=== PATIENT | male | born 1995 | race Caucasian/White ===

== ENCOUNTER 2024-05-18 04:02 | Emergency (ER) | payer SELFPAY ==
[~2024-05-18] VITALS: Ht 175.3 cm; Wt 170.0 kg
[2024-05-18 05:34] VITALS: BP 119/67; PULSE 70; RESP 14; TEMP 98.3; O2SAT 97
== END 2024-05-18 06:51 | disposition left against medical advice (07) ==
LOC: EMS 04:03
DX: S50.02XA Contusion of left elbow, initial encounter (principal); V00.131A Fall from skateboard, initial encounter; Y93.51 Activity, roller skating (inline) and skateboarding; Y92.89 Other specified places as the place of occurrence of the external cause; Y99.8 Other external cause status
CPT/HCPCS: 29105; 99283